=== PATIENT | male | born 1990 | race Caucasian/White ===

== ENCOUNTER → 2020-12-15 | Day surgery (SDC) | payer OTHER | END | disposition home or self-care (01) | LOC: OR 06:11 | DX: K52.9 Noninfective gastroenteritis and colitis, unspecified (principal); K64.0 First degree hemorrhoids; K64.5 Perianal venous thrombosis; K64.4 Residual hemorrhoidal skin tags; G47.33 Obstructive sleep apnea (adult) (pediatric); F17.290 Nicotine dependence, other tobacco product, uncomplicated; E66.01 Morbid (severe) obesity due to excess calories; Z68.41 Body mass index [BMI] 40.0-44.9, adult; Z88.0 Allergy status to penicillin | CPT/HCPCS: J2704; J7040 ==